=== PATIENT | male | born 1985 | race Caucasian/White ===

== ENCOUNTER 2020-06-07 13:01 | Outpatient (CLI) | payer OTHER ==
[~2020-06-07] VITALS: Ht 193 cm; Wt 177.8 kg
[2020-06-07] MEDS ORDERED: DEXT10TA9 PO (13:26)
[2020-06-07] MEDS ORDERED: AMPH20CA5 PO (13:27)
== END 2020-06-07 13:35 | disposition home or self-care (01) ==
LOC: PREOP 13:01
PROVIDERS: ATTEND Surgery
DX: Z01.818 Encounter for other preprocedural examination (principal)

== ENCOUNTER 2020-06-12 09:19 | Day surgery (SDC) | payer OTHER ==
[2020-06-12] VITALS (10 sets, daily range): BP systolic 125–152; BP diastolic 76–99
[~2020-06-12] VITALS: Ht 193 cm; Wt 177.8 kg
[~2020-06-12 09:19] MED LIST: AMPH20CA5 PO; DEXT10TA9 PO
[2020-06-12] MEDS ORDERED: LIDOCAINE/EPI 1%-1:100,000 (XYLOCAINE) 20ML ONE (10:08)
[2020-06-12] MEDS ORDERED: LACTATED RINGERS 1,000 ML IV PRN (10:15)
[2020-06-12] MEDS ORDERED: ceFAZolin INJECTION 1,000 MG in WATER (STERILE) FOR INJECTION 10 ML IV ONE (10:15)
--- NOTE | 2020-06-12 10:18 | Progress Note-Pre Operative ---
Pre-Operative Progress Note H&P Reviewed The H&P was reviewed, patient examined and no changes noted. Time Seen by Provider: 10:16 Date H&P Reviewed: Jun 12, 2020 Time H&P Reviewed: 10:16 Pre-Operative Diagnosis: Ganglion cyst - Left Hand, site marked NHI TELLEZ DO Jun 12, 2020 10:18
[2020-06-12] MEDS ORDERED: MIDAZOLAM 2 MG/2 ML (VERSED) VIAL ONE ×3 (10:26→11:09)
[2020-06-12] MEDS ORDERED: KETAMINE/NaCl 50 MG/5 ML SYRINGE (ED ONLY) ONE (10:29)
[2020-06-12] MEDS ORDERED: PROPOFOL INJECTION 50 ML IV ONE (10:29)
[2020-06-12] MEDS ORDERED: proPOfol 200 MG/20 ML (DIPRIVAN) VIAL IV ONE ×2 (11:11→11:22)
--- NOTE | 2020-06-12 11:42 | Progress Note-Post Operative ---
Post-Operative Progess Note Surgeon (s)/Band Sawing Machine Operator (s) Surgeon NHI TELLEZ DO Band Sawing Machine Operator: Fabiola Pre-Operative Diagnosis Ganglion cyst - Left Hand, site marked Post-Operative Diagnosis same Procedure & Operative Findings Date of Procedure 06/12/20 Procedure Performed/Findings Exc ganglion cyst left hand Anesthesia Type IV sedation by Anesthesia Estimated Blood Loss Estimated blood loss (mL): appx 20ml Specimens/Packing Specimens Removed ganglion cyst NHI TELLEZ DO Jun 12, 2020 11:42
[2020-06-12] MEDS ORDERED: ACHD5005 PO (11:43)
--- NOTE | 2020-06-12 11:44 | Discharge Inst-Surgical ---
Discharge Inst-Surgical Depart Medication/Instructions New, Converted or Re-Newed RX: RX Given to Pt/Family Patient Instructions Follow up Appt: Make appointment for 1 week. [phone] Instructions: No lifting greater than 20 pounds. No strenuous activity. May shower in 24 hours, no tub bath or soaking. Use incentive spirometer at home as directed. No Smoking Skin/Wound Care: May remove bandages in am. You need to leave the Dermabond on incision it will fall off on it's own. Symptoms to Report: Appetite Changes, Extremity Discoloration, Numbness/Tingling, Swelling Increased, Bleeding Excessive, Eyesight Changes, Pain Increased, Urine Color Change, Constipation(Persistent), Fever over 101 degree F, Pain/Pressure in chest, Urinating Difficulty, Cough Up/Vomit Blood, Heart Beat Irreg/Pounding, Pain/Pressure in jaw, Cramps in feet or legs, Lightheadedness, Pain/Pressure in shoulder, Diarrhea(Persistent), Memory Changes Suddenly, Questions/Concerns, Weight gain consecutive days, Dizziness/Fainting, Nausea/Vomiting, Shortness of Breath, Weight gain over 2 pounds If questions or concerns contact your physician Or seek help at emergency department. Activity Activity as Tolerated: Yes Activity Instructions: Avoid Stress to Incision Driving Instructions: No Driving/Refer to Dr. Virgen Discharge Diet: No Restrictions Diet After 24 Hours: Clear Liquid if Nauseous If Any Problems/Questions/Issu: Contact Your Physician, Go to Emergency Room Skin/Wound Care Infection Signs and Symptoms: Increased Redness, Foul Odor of Wound, Increased Drainage, Skin Itchy or Has a Rash, Increased Swelling, Temperature Above 101 F Bathing Instructions: Sponge Stitches/Reggie/Dermabond Dis: Care of Stitches NHI TELLEZ DO Jun 12, 2020 11:44
[2020-06-12] MEDS ORDERED: morphine INJ 10 MG/ML 1ML (SYR OR VIAL) ONE (11:49)
[2020-06-12] MEDS ORDERED: morphine INJ 10 MG/ML 1ML (SYR OR VIAL) IVP ONE (12:00)
[2020-06-12] MEDS ORDERED: ONDANSETRON 4 MG/2 ML (SDV) Z0FRAN IVP PRN (12:00)
[2020-06-12] MEDS ORDERED: HYDROcodone/APAP 5 MG/325 MG (LORTAB) TAB PO ONE (12:30)
--- NOTE | 2020-06-12 23:29 | OPERATIVE REPORT ---
DATE OF SERVICE: PREOPERATIVE DIAGNOSIS: Ganglion cyst on the left hand. POSTOPERATIVE DIAGNOSIS: Ganglion cyst on the left hand. PROCEDURE: Excision of ganglion cyst, left hand. SURGEON: Hany Reardon DO CRACKER AND COOKIE MACHINE OPERATOR: Dr. Hicks. ANESTHESIA: IV sedation by anesthesia. BLOOD LOSS: Less than 20 mL. FLUIDS: Per anesthesia. POSTOPERATIVE CONDITION: Stable. INDICATION FOR PROCEDURE: The patient is a 34-year-old male who has a ganglion cyst on the left hand, right just above the anatomic snuffbox. FINDINGS: The patient had a ganglion cyst removed. PROCEDURE NOTE: After informed consent was obtained, the patient was brought to the operating room, placed on the table in supine position. He was sterilely prepped and draped in normal fashion. Local lidocaine was used to perform a block right at the wrist and then used more local to go above the ganglion cyst and around and regional block. An incision was made with #15 blade, carried down through skin and subcutaneous tissue, deepened down to subcutaneous tissue with Bovie electrocautery and then carefully moving tissue side able to finally dissect down, pulled back some fascia and able to identify the ganglion cyst, started carefully dissecting around this with hemostat trying to get around and under it, so we could get a little bit of opening and some fluid released from one side of it. Continued to carefully go around it and as we were trying to clear off the area closest to the thumb, we got into some bleeding, had to control this with a 3-0 Vicryl suture. This controlled the bleeding, continued taking the ganglion cyst off and then got a chromic on Endoloop to get around the base of this ganglion cyst. It actually appeared that they were two, able to get both of these held up with hemostats and then at the base of these, placed his 0 Endoloop chromic, tightened it down and then cut off the ganglion cyst and passed this off table with Bovie electrocautery. Copiously irrigated with normal saline. There was no bleeding at the end of the case. Elected to leave some FloSeal in to make sure there was no bleeding and then closed the small incision. It was probably a 2.3 cm incision, closed this with 3-0 Prolene 3 interrupted stitches. Area was cleaned and dried. Dressings placed. Dr. Hicks assisted in this case helping to identify anatomy and hold anatomy out of the way. Job ID: [id number] DocumentID: [id number] Dictated Date: 06/12/2020 16:19:01 Cabin Equipment Supervisor Date: 06/12/2020 23:28:27 Dictated By: HANY REARDON DO
== END 2020-06-12 13:40 | disposition home or self-care (01) ==
LOC: SDC 09:19
PROVIDERS: ATTEND Surgery
DX: M67.442 Ganglion, left hand (principal); E66.01 Morbid (severe) obesity due to excess calories; Z68.42 Body mass index [BMI] 45.0-49.9, adult; Z80.9 Family history of malignant neoplasm, unspecified; Z82.49 Family history of ischemic heart disease and other diseases of the circulatory system
CPT/HCPCS: 87081